=== PATIENT | male | born 1970 | race Caucasian/White ===

== ENCOUNTER 2022-10-17 13:45 | Outpatient (CLI) | payer OTHER, SELFPAY ==
--- NOTE | ~2022-10-17 | US_ITS ---
EXAMINATION: US venous doppler [facility] DATE: 10/17/2022 14:20 INDICATION: Left lower limb pain, swelling and occasional erythema TECHNIQUE: Grayscale ultrasound images without and with compression and Doppler ultrasound images of the left lower extremity veins were obtained. COMPARISON: None. FINDINGS: The visualized portions of left common femoral vein, profunda (deep) femoral vein, femoral vein, popl iteal vein, peroneal veins, posterior tibial veins, gastrocnemius vein, soleal vein and greater saphe nous vein outflow are patent. IMPRESSION: 1. No deep venous thrombosis in the left lower limb. Reviewed, dictated and finalized at location A.
== END 2022-10-17 13:46 ==
PROVIDERS: PCP Nurse Practitioner Family; Visit Provider Nurse Practitioner Family
DX: R22.42 Localized swelling, mass and lump, left lower limb (principal)
CPT/HCPCS: 93971

== ENCOUNTER 2024-07-27 14:35 | Outpatient (CLI) | payer OTHER, SELFPAY ==
--- NOTE | ~2024-07-27 | XR_ITS ---
AP view of the pelvis and AP and lateral views of the right hip Clinical history: Pain Findings: No acute fracture or dislocation is seen. Osseous alignment is anatomic. Bilateral hip and SI joint spaces are preserved. Soft tissues are unremarkable. Impression: No significant abnormality is seen. Reviewed, dictated and finalized at [facility]. OR REVENUE ACCOUNTANT Impression: No significant abnormality is seen.
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
--- OUTSIDE RECORDS SUMMARY | 2024-07-27 15:25 | XMS_ITS | Encounter Summary ---
Author Organization [facility] Address [address] [place] [address] Care Team Providers Care Mail List Processor Name Role Phone Margi Minor COATER OPERATOR INSULATION BOARD-WOOD TANK BUILDER Primary Care Provider Encounter Details Date Type Department Care Team (Late st Contact Info) Description 02/15/2019 Lab Requisition [facility] [address] [place] [address] Haley Simeon MD [address] [place] [address] Illness Social History Tobacco Use Types Packs/Day Years Used Date Smoking Tobacco: Never Assessed Sex and Gender Information Value Date Recorded Sex Assigned at Not on file Gender Identity Not on file Sexual Orientation Not on file documented as of this encounter Plan of Treatment Not on file documented as of this encounter Procedures Procedure Name Priority Date/Time Associated Diagnosis Comments PATHOLOGY TISSUE Routine 02/11/2019 3:50 PM CDT Illness documented in this encounter Results * PATHOLOGY TISSUE (02/11/2019 3:50 PM CDT) Case Report Surgical Pathology Report Case: [id number] Authorizing Provider: Haley Simeon MD Collected: 02/11/2019 03:50 PM Ordering Location: [facility] Received: 02/15/2019 03:50 PM Pathologist: Anyi Sandoval MD Specimen: Slide Consultation, OSC: [id number] 02/17/2019 12:27 PM CDT [facility] Final Diagnosis Prostate, LLB, needle core biopsy (, A; 02/11/2019): - Benign prostatic tissue Prostate, LLM, needle core biopsy (, B; 02/11/2019): - Benign prostatic tissue Prostate, LLA, needle core biopsy (, C; 02/11/2019): - Benign prostatic tissue Prostate, LB, needle core biopsy (, D; 02/11/2019): - Benign prostatic tissue Prostate, LM, needle core biopsy (, E; 02/11/2019): - Benign prostatic tissue Prostate, LA, needle core biopsy (, F; 02/11/2019): - Benign prostatic tissue Prostate, RB, needle core biopsy (, G; 02/11/2019): - Benign prostatic tissue Prostate, RM, needle core biopsy (, H; 02/11/2019): - Benign prostatic tissue Prostate, RA, needle core biopsy (, I; 02/11/2019): - Benign prostatic tissue Prostate, RLB, needle core biopsy (, J; 02/11/2019): - Benign prostatic tissue Prostate, RLM, needle core biopsy (, K; 02/11/2019): - Benign prostatic tissue Prostate, RLA, needle core biopsy (, L; 02/11/2019): - Benign prostatic tissue 02/17/2019 12:27 PM [facility] Microscopic Description and Comment All twelve biopsies contain benign prostatic tissue. No tumor is seen. 02/17/2019 12:27 PM [facility] Clinical History 48-year-old man, PSA 5.7, prostate volume 37.8, T1c 02/17/2019 12:27 PM [facility] Materials Received Received are 12 H and E stained slides (A1 - L1) from [facility], [address] [place] [address], [address], [place] [address], labeled with the patient s name Derick Garrison and , along with the corresponding pathology gross description also labeled with the patient's full name Derick Garrison . All material will be returned. 02/17/2019 12:27 PM CDT [facility] Disclaimer The performance characteristics of all immunohistochemical and indirect immunofluorescence stains (if any) cited in this report were determined by the Histopathology Laboratory of [facility]. Some of these tests were developed by our own laboratory and have not been cleared or approved by the US Food and Drug Administration. The FDA does not require this test to go through premarket FDA review. These tests are used for clinical purposes. They should not be regarded as investigational or for research. This laboratory is certified under the Clinical Laboratory Improvement Amendments (CLIA) as qualified to perform high complexity clinical laboratory testing. This case has been personally reviewed and interpreted by the attending (teaching) pathologist. 02/17/2019 12:27 PM CDT [facility] Embedded Images 02/17/2019 12:27 PM CDT [facility] Pathology/Cytolo gy SURGICAL PATHOLOGY CONSULTATION AND REPORT ON REFERRED SLIDES PREPARED ELSEWHERE / Unknown 02/11/2019 3:50 PM CDT 02/15/2019 3:50 PM CDT Haley Simeon MD LAB - PATHOLOGY/CYTO LOGY ORDERABLES Performing Organization Address City/State/[facility] [place] Phone Number [facility] [address] [phone] documented in this encounter Visit Diagnoses Diagnosis Illness Other unknown and unspecified cause of morbidity or mortality documented in this encounter Care Teams Mail List Processor Relationship Specialty Start Date End Date Margi Minor, COATER OPERATOR INSULATION BOARD-WOOD TANK BUILDER [address] [place] [address] PCP - General Nurse Practitioner Family 03/05/22 documented as of this encounter
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
--- OUTSIDE RECORDS SUMMARY | 2024-07-27 15:25 | XMS_ITS | Data Portability ---
Author Organization [place] [facility], Main Office Address [address] [place] [address] Care Team Providers Care Gas Line Installer Name Role Phone NOEL BYRNES Primary Care Provider ARMANDO [employer]BB [employer] Safety Program Coordinator Assessment Encounter Date Assessment Date Assessment LastModified by Organization Details LastModified Time 12/28/2023 12/28/2023 The patient gave verbal consent using TeleHealth services and the consent is documented in the medical record prior to using the service. The patient has been informed of what a TeleMedicine visit is. Patient is located at home. Provider is located at office. Names and roles of persons in addition to the patient and provider participating in telemedicine services include none. The patient had a 7 minute TeleMedicine consultation via [employer] to discuss the following: Not available 12/28/2023 18:13:16 01/26/2024 01/26/2024 Sample of Wegovy (1) given to pt. [email or web address] Not available 01/26/2024 15:08:00 04/01/2024 04/01/2024 Flu shot: declines COVID vaccines: 2020, 2020 Tdap: 2021 Shingles: recommended Coloscopy: cologuard negative 2023 PSA: 5.36 (10/26/2023) cleared by urology Goes to eye dr annually Does not have dentist visit regularly [email or web address] Not available 04/01/2024 15:17:18 Plan of Treatment Reminders Order Date Submit Date Provider Last Modified By Organization Details Last Modified Time Details Appointments Sick/Acut e 2024 02:00P YOBANY Costa Not available Not available Not available Lab PSA, serum or plasma 2023 024 [email or web address] [facility] (Lab), [address], [place], [address], 11/23/2023 13:18:01 HbA1c (hemoglob in A1c), blood 2023 024 [facility], [address], [address], [place], [address], 04/08/2024 08:02:48 lipid panel, serum 2023 024 [facility], [address], [address], [place], [address], 04/08/2024 08:02:48 TSH, ultra-sen sitive, serum 2023 024 [facility], [address], [address], [place], [address], 04/08/2024 08:02:49 CBC w/ auto diff 2023 024 [facility], [address], [address], [place], [address], 04/08/2024 08:02:48 CMP, serum or plasma 2023 024 [facility], [address], [address], [place], [address], 04/08/2024 08:02:48 Referral None recorded. Procedures None recorded. Surgeries None recorded. Imaging XR, hip + pelvis, unilatera l, 2 or 3 view - Please XR right hip [address], [address], [address], [address], 07/27/2024 15:27:32 Medication Orders levofloxa ginette 750 mg tablet 2023 024 [email or web address] [facility]/Pharmacy #[id number], [address], [place], [address], 01/26/2024 14:45:57 tamsulosi n 0.4 mg capsule [address]/Pharmacy #[id number], [address], [place], [address], 04/01/2024 14:59:28 phentermi ne 30 mg capsule 2023 024 [facility]/Pharmacy #[id number], [address], [place], [address], 04/01/2024 15:09:20 losartan 100 mg-hydroc hlorothia zide 12.5 mg tablet 2023 024 [id number], [address], [place], [address], 01/26/2024 14:55:20 metoprolo l tartrate 100 mg tablet 2023 024 [facility]/Pharmacy #[id number], [address], [place], [address], 01/26/2024 14:55:21 omeprazol e 20 mg capsule,d elayed release 2023 024 [id number], [address] [place], [address], 01/26/2024 14:55:21 Wegovy 0.25 mg/0.5 mL subcutane ous pen injector [address]/Pharmacy #[id number], [address], [place], [address], 07/27/2024 15:03:56 ketorolac 60 mg/2 mL intramusc ular solution 2024 025 [facility] Not available 07/27/2024 15:26:17 hydrocodo ne 10 mg-acetam inophen 325 mg tablet 2024 025 [facility]/Pharmacy #[id number], [address], [place], [address], 07/27/2024 15:17:25 cyclobenz aprine 10 mg tablet 2024 025 [facility]/Pharmacy #[id number], [address], [place], [address], 07/27/2024 15:17:21 Patient TargetsNo targets recorded. Patient Instructions Encounter Date Encounter Id Patient Instructions Last Modified By Organization Details Last Modified Time 11/20/2023 [id number] plan 1. Start on tamsulosin 2. Send a prescription for Levaquin 500 mg he will take the night before his prostate biopsy in the morning of his prostate biopsy 3. Schedule patient for flexible cystoscopy and transrectal ultrasound with needle biopsies of the prostate, local anesthesia, no hep-lock no IV, surgical time 15 minutes Not available 11/20/2023 18:11:15 12/28/2023 [id number] plan 1. Patient's biopsies were all negative for cancer no follow up is necessary I will just see him back as needed Not available 12/28/2023 18:13:31 01/26/2024 [id number] starting a weigh t loss plan: care instructions [email or web address] Not available 01/26/2024 15:06:04 Reason for Referral None Reported. Results Created Date Observation Date Name Description Value Unit Range Abnormal Flag Note LastModifiedBy Organization Detail LastModifiedTime 11/20/1911/20/2023 urina lysis , dipst ick Appearance Cloudy Not Available [facility] [address], [address], [address], 11/20/2023 15:46:49 11/20/1911/20/2023 urina lysis , dipst ick Color Yellow Not Available [facility] [address], [address], [address], 11/20/2023 15:46:49 11/20/19 24 11/20/2023 urina lysis , dipst ick Glucose (reference range: negative mg/dl) Negati ve Not Available [address], [address], 11/20/2023 15:46:49 11/20/19 24 11/20/2023 urina lysis , dipst ick Bilirubin (reference range: negative mg/dl) Negati ve Not Available [address], [address], 11/20/2023 15:46:49 11/20/19 24 11/20/2023 urina lysis , dipst ick Ketone (reference range: negative mg/dl) Negati ve Not Available [address], [address], 11/20/2023 15:46:49 11/20/19 24 11/20/2023 urina lysis , dipst ick Specific [place] (reference range: 1.005-1.030) 1.010 Not Available [address], [address], 11/20/2023 15:46:49 11/20/19 24 11/20/2023 urina lysis , dipst ick Blood (reference range: negative Joni/ l) Negati ve Not Available [address], [address], 11/20/2023 15:46:49 11/20/19 24 11/20/2023 urina lysis , dipst ick pH (reference range: 5-7) 6.5 Not Available [address], [address] , [place], [address], 11/20/2023 15:46:49 11/20/19 24 11/20/2023 urina lysis , dipst ick Protein (reference range: negative mg/dl) Negati ve Not Available [address], [address], 11/20/2023 15:46:49 11/20/19 24 11/20/2023 urina lysis , dipst ick Urobilinogen (reference range: 0.2-1 mg/dl) 0.2 Not Available [address] [address], [place], [address], 11/20/2023 15:46:49 11/20/19 24 11/20/2023 urina lysis , dipst ick Nitrite (reference rage: negative mg/dl) positi ve Not Available [address] [address], [place], [address], 11/20/2023 15:46:49 11/20/19 24 11/20/2023 urina lysis , dipst ick Leukocytes (reference range: negative missy/ l) Negati ve Not Available [address], [address], 11/20/2023 15:46:49 12/17/19 24 12/17/2023 COLOG UARD cologuard result reportable NEGATI VE negati ve normal NEGAT LETICIA TEST RESUL T. A negat leticia Colog uard resul t indic ates a low likel ihood that a color ectal cance r (CRC) or advan jo adeno ma (roxanna omato us polyp s with more advan jo pre-m align ant featu res) is prese nt. The nemours foundation e that a perso n with a negat leticia Colog uard test has a color ectal cance r is less than 1 in 1500 (nega tive predi ctive value >99.9 %) or has an advan jo adeno ma is less than 5.3% (nega tive predi ctive value 94.7% ). These data are based on a prosp ectiv e cross -sect ional study of 10,00 0 ind[facility]ual [facility] risk for color ectal cance r who were scree roseline with both Colog uard and colon oscop y. (Bude michelle T. et al, N Engl J Med 2014; 370(1 4):12 86-12 97) The katharine l value (refe rence range ) for this assay is negat leticia. COLOG UARD RE-SC REENI NG RECOM MENDA TION: Perio dic color ectal cance r scree [place] is an impor tant part of preve ntive healt hcare for asymp tomat ic indiv idual s at [facility] risk for color ectal cance r. Follo wing a negat leticia Colog uard resul t, the Ameri can Cance r Socie ty and U.S. Multi -Soci ety Task Force scree [place] guide lines recom mend a Colog uard re-sc reemaral ng inter angelito of 3 years . Refer ences : Ameri can Cance r Socie ty Guide line for Color ectal Cance r Scree lakesha: https ://malorie w.can cer.o rg/ca ncer/ colon -rect al-ca ncer/ detec tion- diagn osis- stagi ng/ac s-rec ommen datio ns.ht ml.; Marc GARCIA, Malik dooley CR, Brittany HAN, Color ectal Cance r Scree [place]: Recom menda tions for Physi cians and Patie nts from the U.S. Multi -Soci ety Task Force on Color ectal Cance r Scree lakesha , Isra Latham oente rolog y 2017; 112:1 016-1 030. TEST DESCR IPTIO N: [place] site algor ithmi c geoffrey sis of stool DNA-b emilie garcia with hemog lobin immun oassa y. Quant itati ve value s of indiv idual bioma rkers are not repor table and are not assoc iated with indiv idual bioma rker resul t refer ence range s. Colog uard is inten ded for color ectal cance r scree [place] of adult s of eithe r sex, 45 years or older , who are at [facility] for color ectal cance r (CRC) . Colog uard has been appro deepak for use by the U.S. FDA. The perfo rmanc e of Colog uard was estab lishe d in a cross secti onal study of [facility] adult s aged 50-84 . Colog uard perfo rmanc e in patie nts ages 45 to 49 years was estim ated by sub-g roup geoffrey sis of near- age group s. Colon oscop ies perfo rmed for a posit leticia resul t may find as the most clini alex signi jose t shahida n: color ectal cance r [4.0% ], advan jo adeno ma (incl uding sessi le maria fernanda louisa polyp s great er than or equal to 1cm diame ter) [20%] or non- advan jo adeno ma [31%] ; or no color ectal neopl kolton [45%] . These estim ates are deriv ed from a prosp ectiv e cross -sect ional scree [place]ha study of 10,00 0 indiv idual s at [facility] risk for color ectal cance r who were scree roseline with both Colog uard and colon oscop y. (Janki Ash al, N Engl J Med 2014; 370(1 4):12 86-12 97.) Colog uard may produ ce a false negat leticia or false posit leticia resul t (no color ectal cance r or preca ncero us polyp prese nt at colon oscop y follo w up). A negat leticia Colog uard test resul t does not guara ntee the absen ce of CRC or advan jo adeno ma (pre- cance r). The curre nt Colog uard scree [place] inter angelito is every 3 years . (Adriel Mahmood r Socie ty and U.S. Multi -Soci ety Task Force ). Colog uard perfo rmanc e data in a 10,00 0 patie nt pivot al study using colon oscop y as the refer ence metho d can be acces sed at the follo wing locat ion: www.e xactl abs.c om/re sults . Addit ional descr iptio n of the Colog uard test proce ss, warni ngs and preca ution s can be found at www.c candiu bigg.c om. Not Available [employer] (Cologuard Orders Only) [address], [place], [address], 12/22/2023 10:33:51 Result Notes None recorded. Problems Name Problem SNOMED Code Status Onset Date Resolution Date Notes Provider Name and Address Organization Details Recorded Time Cellul[employer] s 183910127 Completed 10/26/[address], [address], [place], [address] , [employer] 4 15:23:31 Thyroid stimulati ng hormone level below reference range 924835320 Completed 201810/26/2023 YOBANY Whalen [address], [address], [place], [address] , [employer] 4 15:23:04 Family history of diabetes mellitus 640373267 Active 2017 Not Available [facility] 3 08:46:17 Prostate specific antigen above reference range 511017277 Active 2018 Not Available [facility] 3 08:46:17 Obese 836172274 Active 2017 Not Available [facility] 3 08:46:17 Furuncle 992304461 Completed 201710/26/[address], [address], [place], [address] , [employer] 4 15:23:49 Essential hypertens ion 00162472 Active 2021 Not Available [facility] 3 08:46:18 Alcohol dependenc e 27249111 Active 2017 Not Available [facility] 3 08:46:18 Acid reflux 584983600 Active 2017 Not Available [facility] 3 08:46:18 Liver enzymes level above reference range 846825148 Completed 201810/26/2023 YOBANY Whalen [address], [address], [place], [address] , [employer] [facility] 4 15:23:18 Swelling of lower leg 425095848 Active 2022 Margi Minor NP [address], [address], [place], [address] , [employer] [facility] 3 16:00:40 Thyroid stimulati ng hormone level above reference range 199478839 Completed 202210/26/2023 YOBANY Whalen [address], [address], [place], [address] , [employer] [facility] 4 15:22:58 Hyperglyc emia 67887184 Active 2022 Margi Minor NP [address], [address], [place], [address] , [employer] [facility] [facility] 3 17:15:52 Epidermoi d cyst of skin 734133222 Active 2023 YOBANY Whalen [address], [address], [place], [address] , [email or web address] [facility] [facility] 4 15:24:00 Obesity 984657049 Active 2023 YOBANY Whalen [address], [address], [place], [address] , [employer] [facility] 4 15:33:37 Benign prostatic hyperplas ia with outflow obstructi on 182357415 Active 2023 Cindy Crawford CMA null, [facility] [employer] [facility] 4 15:37:25 Gastroeso phageal reflux disease 202979933 Active 2023 YOBANY Whalen [address], [place], [address] , [employer] [facility] 4 12:18:35 Hypertens leticia disorder 57272941 Active 2023 Clinton Soto MD [address], [address], [place], [address] , [employer] 4 14:50:23 Ex-cigare tte smoker 142269198 Active 2023 Clinton Soto MD [address], [address], [place], [address] , [email or web address] [facility] 4 14:55:40 Pain in right hip joint 64163190322 9102 Active [address], [address], [place], [address] , [employer] [facility] 5 15:12:04 Problem Notes None recorded. Procedures Surgical History Date Name Laterality Status Provider Name and Address Organization Details Recorded Time 2 procedure on wound completed Not Available [facility] 08/20/2022 08:43:05 Imaging Results None recorded. Procedure Notes None recorded. Medical Equipment None Reported. Allergies No known drug allergies Medications Name Sig Start Date Stop Date Status Note LastModified by Organization Details LastModified Time losartan 50 mg tablet TAKE 1 TABLET BY MOUTH EVERY DAY 01/25 completed Not Available Not Available Not Available cyclobenzap rine 10 mg tablet TAKE 1 Tablet BY MOUTH THREE TIMES DAILY 2024 active Not Available Not Available Not Avai lable silver sulfadiazin e 1 % topical cream APPLY TO AFFECTED AREA TOPICALLY EVERY DAY 05/21 completed Not Available Not Available Not Available lisinopril 20 mg-hydrochl orothiazide 12.5 mg tablet TAKE 1 TABLET BY MOUTH EVERY DAY (LAST FILL UNTIL SEEN 10/21/21) 03/26 completed Not Available Not Available Not Available metoprolol tartrate 100 mg tablet TAKE 1 TABLET BY MOUTH TWICE A DAY DIRECTED active Not Available Not Available No t Available hydrocodone 5 mg-acetamin ophen 325 mg tablet TAKE 2 TABLETS BY MOUTH EVERY 4 HOURS NEEDED FOR PAIN 10/09 completed Not Available Not Available Not Available phentermine 15 mg capsule TAKE 1 CAPSULE BY MOUTH EVERY DAY DIRECTED FOR 30 DAYS 01/25 completed Not Available Not Available Not Available bacitracin 500 unit/gram topical ointment APPLY TOPICALLY TO THE AFFECTED AREA(S) THREE TIMES DAILY DIRECTED. 05/21 completed Not Available Not Available Not Available cimetidine 300 mg tablet TAKE 1 TABLET BY MOUTH THREE TIMES A DAY NEEDED 12/20 completed Not Available Not Available Not Available sulfamethox azole 800 mg-trimetho prim 160 mg tablet TAKE 1 TABLET BY MOUTH TWICE A DAY FOR 2 WEEKS 10/09 completed Not Available Not Available Not Available hydrocodone 10 mg-acetamin ophen 325 mg tablet Take 1 tablet every 12 hours by oral route as needed for 7 days. 2024 active Not Available Not Available Not Avai lable phentermine 30 mg capsule TAKE 1 CAPSULE BY MOUTH EVERY DAY IN THE MORNING 04/01 completed Not Available Not Available Not Available pantoprazol e 20 mg tablet,saray yed release TAKE 1 Tablet BY MOUTH DAILY BEFORE BREAKFAST 05/21 completed Not Available Not Available Not Available famotidine 20 mg tablet 1 tab po daily 12/26 completed Not Available Not Available Not Available tamsulosin 0.4 mg capsule TAKE 1 CAPSULE BY MOUTH EVERY DAY active Not Available Not Available No t Available cephalexin 500 mg capsule TAKE 1 TABLET BY MOUTH 3 TIMES A DAY 12/20 completed Not Available Not Available Not Available ranitidine 150 mg tablet TAKE 1 TABLET BY MOUTH TWICE A DAY 10/20 completed Not Available Not Available Not Available polymyxin B sulfate 10,000 unit-trimet hoprim 1 mg/mL eye drops INSTILL 1 DROP INTO AFFECTED EYE(S) (bilatera lly) BY OPHTHALMI C ROUTE EVERY 6 HOURS for 7-10 days active Not Available Not Available No t Available metoprolol tartrate 50 mg tablet TAKE 1 TABLET BY MOUTH TWICE A DAY 04/01 completed Not Available Not Available Not Available gabapentin 300 mg capsule TAKE 1 Capsule BY MOUTH THREE TIMES DAILY 05/21 completed Not Available Not Available Not Available omeprazole 20 mg capsule,del ayed release TAKE 1 CAPSULE BY MOUTH EVERY DAY active Not Available Not Available No t Available Baby Aspirin 81 mg chewable tablet Chew 1 tablet every other day by oral route. active Not Available Not Available No t Available levofloxaci n 750 mg tablet TAKE 1 TABLET BY MOUTH THE NIGHT BEFORE PROCEDURE AND 1 TABLET THE MORNING OF PROCEDURE . 01/25 completed Not Available Not Available Not Available losartan 50 mg-hydrochl orothiazide 12.5 mg tablet TAKE 1 TABLET BY MOUTH EVERY DAY DIRECTED 04/01 completed Not Available Not Available Not Available ketorolac 60 mg/2 mL intramuscul ar solution Inject 1 mL every day by intramusc ular route as directed for 1 day. 2024 active Not Available Not Available Not Avai lable cefdinir 300 mg capsule TAKE 1 CAPSULE BY MOUTH 1 HOUR PRIOR TO PROCEDURE AND 1 CAPSULE 12 HOURS FOLLOWING PROCEDURE 06/23 completed Not Available Not Available Not Available amoxicillin 500 mg-potassiu m clavulanate 125 mg tablet TAKE 1 TABLET BY MOUTH EVERY 12 HOURS FOR 7 DAYS 06/23 completed Not Available Not Available Not Available losartan 100 mg-hydrochl orothiazide 12.5 mg tablet TAKE 1 TABLET BY MOUTH EVERY DAY IN THE MORNING active Not Available Not Available No t Available Symbicort 160 mcg-4.5 mcg/actuati on HFA aerosol inhaler Inhale 2 puffs twice a day by inhalatio n route. 03/26 completed Not Available Not Available Not Available oxycodone 10 mg tablet TAKE ONE TABLET BY MOUTH EVERY SIX HOURS NEEDED FOR PAIN (SCALE 7-10) 05/21 completed Not Available Not Available Not Available naloxone 4 mg/actuatio n nasal spray PLEASE SEE ATTACHED FOR DETAILED DIRECTION S 10/09 completed Not Available Not Available Not Available Fluarix Quad 5903-5050 (PF) 60 mcg (15 mcg x 4)/0.5 mL IM syringe TO BE ADMINISTE RED BY PHARMACIS T FOR IMMUNIZAT ION 07/04 completed Not Available Not Available Not Available Wegovy 0.25 mg/0.5 mL subcutaneou s pen injector Inject 0.25 mg every week by subcutane ous route as directed for 28 days. 07/27 completed Not Available Not Available Not Available Wegovy 0.5 mg/0.5 mL subcutaneou s pen injector Inject 0.5 mg every week by subcutane ous route. 04/21 completed Not Available Not Available Not Available Vitals Date Recorded Body height Heart rate Body temperature Oxygen saturation Oxygen saturation in Arterial blood by Pulse oximetry Body mass index (BMI) Body weight Systolic blood pressure Diastolic blood pressure Provider Name and Address Organization Details Last Updated DateTime 172.72 cm 90 /min 97.1 [degF] 98 % 98 % 46.2 kg/m2 467201. 08 g 151 mm[Hg] 91 mm[Hg] Cindy Crawford CMA [employer] 15:05:17 Date Recorded Body height Body mass index (BMI) Body weight Provider Name and Address Organization Details Last Updated DateTime 12/28/2023 172.72 cm 42.6 kg/m2 832634.86 g Cindy Crawford CMA [employer] 12/28/2023 14:07:48 Date Recorded Body height Body mass index (BMI) Body weight Body temperature Heart rate Oxygen saturation Oxygen saturation in Arterial blood by Pulse oximetry Systolic blood pressure Diastolic blood pressure Provider Name and Address Organization Details Last Updated DateTime 172.72 cm 43.8 kg/m2 852628. 96 g 98 [degF] 84 /min 99 % 99 % 156 mm[Hg] 88 mm[Hg] Fawad Gallego [employer] 14:43:31 Date Recorded Respiratory rate Provider Name a ak Address Organization Details Last Updated DateTime 01/26/2024 20 /min Sarita Greene [address] [place] [address], [address], [employer] 01/26/2024 15:06:45 Date Recorded Body height Body mass index (BMI) Body weight Body temperature Heart rate Respiratory rate Pain severity - 0-10 verbal numeric rating [Score] - Reported Oxygen saturation Oxygen saturation in Arterial blood by Pulse oximetry Systolic blood pressure Diastolic blood pressure Provider Name and Address Organization Details Last Updated DateTime 4 172.72 cm 42.7 kg/m2 554142. 16 g 97.3 [degF] 63 /min 20 /min 0 98 % 98 % 152 mm[Hg] 90 mm[Hg] Margi Mccauley RN [facility] [employer] [facility] 4 15:01:34 Date Recorded Body height Body mass index (BMI) Body weight Body temperature Heart rate Respiratory rate Oxygen saturation Oxygen saturation in Arterial blood by Pulse oximetry Pain severity - 0-10 verbal numeric rating [Score] - Reported Systolic blood pressure Diastolic blood pressure Provider Name and Address Organization Details Last Updated DateTime 5 172.72 cm 44.7 kg/m2 624238. 91 g 98.1 [degF] 51 /min 20 /min 98 % 98 % 8 148 mm[Hg] 90 mm[Hg] Margi Mccauley RN [facility] [employer] 5 15:06:04 Social History Question Answer Notes LastModified by Organization Details LastModified Time Tobacco Smoking Status Former Smoker Clinton Soto MD [address] [place] [address], [address], [facility] [employer] 01/26/2024 15:06:33 What Is Your Level Of Alcohol Consumption? Heavy [id number] Information not available 08/20/2022 Is Blood Transfusion Acceptable In An Emergency? Yes Information not available 10/09/2022 What Is Your Level Of Caffeine Consumption? Heavy Coffee, Soda Information not available 10/09/2022 How Much Tobacco Do You Chew? None [id number] Information not available 08/20/2022 What Is Your Code Status? Full Code Information not available 10/09/2022 In The 14 Days Before Symptom Onset, Have You Had Close Contact With A Laboratory-confi rmed COVID-19 While That Case Was Ill? No [id number] Information not available 08/20/2022 In The 14 Days Before Symptom Onset, Have You Had Close Contact With A Person Who Is Under Investigation For COVID-19 While That Person Was Ill? No [id number] Information not available 08/20/2022 Are You Currently Employed? Yes Information not available 10/09/2022 What Type Of Diet Are You Following? REGULAR [id number] Information not available 08/20/2022 Which Illicit Or Recreational Drugs Have You Used? All Kinds Information not available 10/09/2022 Do You Or Have You Ever Used E-cigarettes Or Vape? Never Used Electronic Cigarettes [id number] Information not available 08/20/2022 What Is The Highest Grade Or Level Of School You Have Completed Or The Highest Degree You Have Received? 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 No Information not available 10/09/2022 Are There Any Guns Present In Your Home? No Information not available 10/09/2022 Do You Use Insect Repellent Routinely? Yes Information not available 10/09/2022 Where Do You Live? [place]House Information not available 10/09/2022 Do You Have A Medical Power Of Customer Account Executive? No Information not available 10/09/2022 Do You Have Any Pets? No Information not available 10/09/2022 What Is Your Relationship Status? Single Information not available 10/09/2022 Do You Use Your Seat Belt Or Car Seat Routinely? Yes Information not available 10/09/2022 Do You Have Smoke And Carbon Monoxide Detectors In Your Home? Yes Information not available 10/09/2022 Do You Or Have You Ever Used Smokeless Tobacco? Never Used Smokeless Tobacco [id number] Information not available 08/20/2022 Do You Participate In Social Media? Yes Information not available 10/09/2022 Do You Feel Stressed (tense, Restless, Nervous, Or Anxious, Or Unable To Sleep At Night)? [id number] Information not available 10/09/2022 Do You Use Any Illicit Or Recreational Drugs? Yes Information not available 10/09/2022 Do You Use Sunscreen Routinely? Yes Information not available 10/09/2022 Have You Recently Traveled Abroad? No Information not available 10/09/2022 Have You Used IV Drugs? No Information not available 10/09/2022 Do You Or Have You Ever Used Any Other Forms

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
--- OUTSIDE RECORDS SUMMARY | 2024-07-27 15:25 | XMS_ITS | Patient Health Summary ---
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 fracture (03/05/2022 5:05 PM CDT) Anatomical Region Laterality Modality Spine Computed Tomogra phy 03/06/2022 7:18 AM CDT Impressions 03/06/2022 7:31 AM CDT IMPRESSION: Head: 1.No acute intracranial abnormality. Cervical, thoracic and lumbar spine: 1.No fracture of the cervical or thoracic spine. 2.Acute mildly displaced fractures of left L1-L3 transverse processes. Acute fracture of left L3. 3.Please refer to the separately dictated report of CT scan of the chest, abdomen and pelvis for intrathoracic and intra-abdominal findings. > Interpreting Provider: Juli Valadez MD on 03/06/2022 7:31 AM Narrative 03/06/2022 7:31 AM CDT PROCEDURE: CT HEAD WO CONTRAST, CT LUMBAR SPINE WO CONTRAST, CT THORACIC SPINE WO CONTRAST, CT CERVICAL SPINE WO CONTRAST, DATE/TIME OF EXAM: 03/05/2022 5:07 PM, LOCATION [facility] INDICATION: Trauma COMPARISON: None. EXAMINATIONS: CT of the head without intravenous contrast CT of the cervical spine without intravenous contrast CT of the thoracic spine CT of the lumbar spine TECHNIQUE: CT of the head and cervical spine was performed without intravenous contrast according to standard protocol. CT images of the thoracic spine and lumbar spine were reformatted from the concurrently obtained CT scan of the chest, abdomen and pelvis with intravenous contrast. CT dose reduction technique was used, including Automated Exposure Control. FINDINGS: Head: There is no acute intracranial hemorrhage. There is no hydrocephalus, midline shift or extra-axial fluid collection. The brain parenchyma is normal in appearance. The paranasal sinuses and tympanomastoid cavities are aerated.The orbits are unremarkable. There is no calvarial fracture. Cavities and periapical lucencies are seen associated with the right maxillary molars. Cervical spine: There is no fracture or traumatic subluxation. The prevertebral soft tissues are within normal limits. There is retropharyngeal course of bilateral carotid arteries. Straightening of cervical spine is seen with slight retrolisthesis of C4 relative to C5, presumably from degenerative changes. Multilevel degenerative changes are seen. There is moderate spinal canal stenosis at C5-6. Severe stenosis of right C5-6 neural foramen is seen. There are no aggressive appearing lytic or sclerotic bone lesions. Thoracic spine: There is no fracture or traumatic subluxation of the thoracic spine. There is an acute fracture of posterior medial head of the left 12th rib. Multilevel degenerative changes are seen. There is no spinal canal or foraminal stenosis. There are no aggressive appearing lytic or sclerotic bone lesions. Lumbar spine: There are acute mildly displaced fractures of left L1-L3 transverse processes. Edema/hemorrhage is seen in the adjacent paraspinal soft tissues and muscles. Old compression deformity of T1 is seen with Schmorl's node in the right aspect of the superior endplate. The included sacrum is intact. The lumbar lordosis is maintained with levocurvature. There is no subluxation. Mild degenerative changes are seen. There is mild spinal canal stenosis at L3-4 and L4-5. Mild to moderate bilateral foraminal stenosis is seen from L3-4 to L5-S1, most pronounced on the left. There are no aggressive appearing lytic or sclerotic bone lesions. Procedure Note Juli Valadez MD - 03/06/2022 PROCEDURE: CT HEAD WO CONTRAST, CT LUMBAR SPINE WO CONTRAST, CTTHORACIC SPINE WO CONTRAST, CT CERVICAL SPINE WO CONTRAST, DATE/TIME OF EXAM: 03/05/2022 5:07 PM, LOCATION [facility] INDICATION: Trauma COMPARISON: None. EXAMINATIONS: CT of the head without intravenous contrast CT of the cervical spine without intravenous contrast CT of the thoracic spine CT of the lumbar spine TECHNIQUE: CT of the head and cervical spine was performed without intravenous contrast according to standard protocol. CT images of the thoracic spine and lumbar spine were reformatted from the concurrently obtained CT scan of the chest, abdomen and pelvis with intravenous contrast. CT dose reduction technique was used, including Automated Exposure Control. FINDINGS: Head: There is no acute intracranial hemorrhage. There is no hydrocephalus, midline shift or extra-axial fluid collection. The brain parenchyma is normal in appearance. The paranasal sinuses and tympanomastoid cavities are aerated.The orbits are unremarkable. There is no calvarial fracture. Cavities andperiapical lucencies are seen associated with the right maxillary molars. Cervical spine: There is no fracture or traumatic subluxation. The prevertebral soft tissues are within normal limits. There is retropharyngeal course of bilateral carotid arteries. Straightening of cervical spine is seen with slight retrolisthesis of C4 relative to C5, presumably from degenerative changes. Multilevel degenerative changes are seen. There is moderate spinal canal stenosisat C5-6. Severe stenosis of right C5-6 neural foramen is seen. There are no aggressive appearing lytic or sclerotic bone lesions. Thoracic spine: There is no fracture or traumatic subluxation of the thoracic spine.There is an acute fracture of posterior medial head of the left 12th rib. Multilevel degenerative changes are seen. There is no spinal canal or foraminal stenosis. There are no aggressive appearing lytic or sclerotic bone lesions. Lumbar spine: There are acute mildly displaced fractures of left L1-L3 transverse processes. Edema/hemorrhage is seen in the adjacent paraspinal softtissues and muscles. Old compression deformity of T1 is seen with Schmorl's node in the right aspect of the superior endplate. The included sacrum is intact. The lumbar lordosis is maintained with levocurvature. There is no subluxation. Mild degenerative changes are seen. There is mild spinalcanal stenosis at L3-4 and L4-5. Mild to moderate bilateral foraminal stenosisis seen from L3-4 to L5-S1, most pronounced on the left. There are no aggressive appearing lytic or sclerotic bone lesions. IMPRESSION: Head: 1.No acute intracranial abnormality. Cervical, thoracic and lumbar spine: 1.No fracture of the cervical or thoracic spine. 2.Acute mildly displaced fractures of left L1-L3 transverse processes. Acute fracture of left L3. 3.Please refer to the separately dictated report of CT scan of thechest, abdomen and pelvis for intrathoracic and intra-abdominal findings. > Interpreting Provider: Juli Valadez MD on 03/06/2022 7:31 AM Nahum Rodrigues MD CT ORDERABLES * CT CERVICAL SPINE WO CONTRAST - C-Spine Trauma, Spine fracture (03/05/2022 5:05 PM CDT) Anatomical Region Laterality Modality Spine Computed Tomogra phy 03/06/2022 7:18 AM CDT Impressions 03/06/2022 7:31 AM CDT IMPRESSION: Head: 1.No acute intracranial abnormality. Cervical, thoracic and lumbar spine: 1.No fracture of the cervical or thoracic spine. 2.Acute mildly displaced fractures of left L1-L3 transverse processes. Acute fracture of left L3. 3.Please refer to the separately dictated report of CT scan of the chest, abdomen and pelvis for intrathoracic and intra-abdominal findings. > Interpreting Provider: Juli Valadez MD on 03/06/2022 7:31 AM Narrative 03/06/2022 7:31 AM CDT PROCEDURE: CT HEAD WO CONTRAST, CT LUMBAR SPINE WO CONTRAST, CT THORACIC SPINE WO CONTRAST, CT CERVICAL SPINE WO CONTRAST, DATE/TIME OF EXAM: 03/05/2022 5:07 PM, LOCATION [facility] INDICATION: Trauma COMPARISON: None. EXAMINATIONS: CT of the head without intravenous contrast CT of the cervical spine without intravenous contrast CT of the thoracic spine CT of the lumbar spine TECHNIQUE: CT of the head and cervical spine was performed without intravenous contrast according to standard protocol. CT images of the thoracic spine and lumbar spine were reformatted from the concurrently obtained CT scan of the chest, abdomen and pelvis with intravenous contrast. CT dose reduction technique was used, including Automated Exposure Control. FINDINGS: Head: There is no acute intracranial hemorrhage. There is no hydrocephalus, midline shift or extra-axial fluid collection. The brain parenchyma is normal in appearance. The paranasal sinuses and tympanomastoid cavities are aerated.The orbits are unremarkable. There is no calvarial fracture. Cavities and periapical lucencies are seen associated with the right maxillary molars. Cervical spine: There is no fracture or traumatic subluxation. The prevertebral soft tissues are within normal limits. There is retropharyngeal course of bilateral carotid arteries. Straightening of cervical spine is seen with slight retrolisthesis of C4 relative to C5, presumably from degenerative changes. Multilevel degenerative changes are seen. There is moderate spinal canal stenosis at C5-6. Severe stenosis of right C5-6 neural foramen is seen. There are no aggressive appearing lytic or sclerotic bone lesions. Thoracic spine: There is no fracture or traumatic subluxation of the thoracic spine. There is an acute fracture of posterior medial head of the left 12th rib. Multilevel degenerative changes are seen. There is no spinal canal or foraminal stenosis. There are no aggressive appearing lytic or sclerotic bone lesions. Lumbar spine: There are acute mildly displaced fractures of left L1-L3 transverse processes. Edema/hemorrhage is seen in the adjacent paraspinal soft tissues and muscles. Old compression deformity of T1 is seen with Schmorl's node in the right aspect of the superior endplate. The included sacrum is intact. The lumbar lordosis is maintained with levocurvature. There is no subluxation. Mild degenerative changes are seen. There is mild spinal canal stenosis at L3-4 and L4-5. Mild to moderate bilateral foraminal stenosis is seen from L3-4 to L5-S1, most pronounced on the left. There are no aggressive appearing lytic or sclerotic bone lesions. Procedure Note Juli Valadez MD - 03/06/2022 PROCEDURE: CT HEAD WO CONTRAST, CT LUMBAR SPINE WO CONTRAST, CTTHORACIC SPINE WO CONTRAST, CT CERVICAL SPINE WO CONTRAST, DATE/TIME OF EXAM: 03/05/2022 5:07 PM, LOCATION [facility] INDICATION: Trauma COMPARISON: None. EXAMINATIONS: CT of the head without intravenous contrast CT of the cervical spine without intravenous contrast CT of the thoracic spine CT of the lumbar spine TECHNIQUE: CT of the head and cervical spine was performed without intravenous contrast according to standard protocol. CT images of the thoracic spine and lumbar spine were reformatted from the concurrently obtained CT scan of the chest, abdomen and pelvis with intravenous contrast. CT dose reduction technique was used, including Automated Exposure Control. FINDINGS: Head: There is no acute intracranial hemorrhage. There is no hydrocephalus, midline shift or extra-axial fluid collection. The brain parenchyma is normal in appearance. The paranasal sinuses and tympanomastoid cavities are aerated.The orbits are unremarkable. There is no calvarial fracture. Cavities andperiapical lucencies are seen associated with the right maxillary molars. Cervical spine: There is no fracture or traumatic subluxation. The prevertebral soft tissues are within normal limits. There is retropharyngeal course of bilateral carotid arteries. Straightening of cervical spine is seen with slight retrolisthesis of C4 relative to C5, presumably from degenerative changes. Multilevel degenerative changes are seen. There is moderate spinal canal stenosisat C5-6. Severe stenosis of right C5-6 neural foramen is seen. There are no aggressive appearing lytic or sclerotic bone lesions. Thoracic spine: There is no fracture or traumatic subluxation of the thoracic spine.There is an acute fracture of posterior medial head of the left 12th rib. Multilevel degenerative changes are seen. There is no spinal canal or foraminal stenosis. There are no aggressive appearing lytic or sclerotic bone lesions. Lumbar spine: There are acute mildly displaced fractures of left L1-L3 transverse processes. Edema/hemorrhage is seen in the adjacent paraspinal softtissues and muscles. Old compression deformity of T1 is seen with Schmorl's node in the right aspect of the superior endplate. The included sacrum is intact. The lumbar lordosis is maintained with levocurvature. There is no subluxation. Mild degenerative changes are seen. There is mild spinalcanal stenosis at L3-4 and L4-5. Mild to moderate bilateral foraminal stenosisis seen from L3-4 to L5-S1, most pronounced on the left. There are no aggressive appearing lytic or sclerotic bone lesions. IMPRESSION: Head: 1.No acute intracranial abnormality. Cervical, thoracic and lumbar spine: 1.No fracture of the cervical or thoracic spine. 2.Acute mildly displaced fractures of left L1-L3 transverse processes. Acute fracture of left L3. 3.Please refer to the separately dictated report of CT scan of thechest, abdomen and pelvis for intrathoracic and intra-abdominal findings. > Interpreting Provider: Juli Valadez MD on 03/06/2022 7:31 AM Nahum Rodrigues MD CT ORDERABLES * CT HEAD WO CONTRAST - Head Trauma, CSF leak, mental status changes (03/05/2022 5:05 PM CDT) Anatomical Region Laterality Modality Head Computed Tomogra phy 03/06/2022 7:18 AM CDT Impressions 03/06/2022 7:31 AM CDT IMPRESSION: Head: 1.No acute intracranial abnormality. Cervical, thoracic and lumbar spine: 1.No fracture of the cervical or thoracic spine. 2.Acute mildly displaced fractures of left L1-L3 transverse processes. Acute fracture of left L3. 3.Please refer to the separately dictated report of CT scan of the chest, abdomen and pelvis for intrathoracic and intra-abdominal findings. > Interpreting Provider: Juli Valadez MD on 03/06/2022 7:31 AM Narrative 03/06/2022 7:31 AM CDT PROCEDURE: CT HEAD WO CONTRAST, CT LUMBAR SPINE WO CONTRAST, CT THORACIC SPINE WO CONTRAST, CT CERVICAL SPINE WO CONTRAST, DATE/TIME OF EXAM: 03/05/2022 5:07 PM, LOCATION [facility] INDICATION: Trauma COMPARISON: None. EXAMINATIONS: CT of the head without intravenous contrast CT of the cervical spine without intravenous contrast CT of the thoracic spine CT of the lumbar spine TECHNIQUE: CT of the head and cervical spine was performed without intravenous contrast according to standard protocol. CT images of the thoracic spine and lumbar spine were reformatted from the concurrently obtained CT scan of the chest, abdomen and pelvis with intravenous contrast. CT dose reduction technique was used, including Automated Exposure Control. FINDINGS: Head: There is no acute intracranial hemorrhage. There is no hydrocephalus, midline shift or extra-axial fluid collection. The brain parenchyma is normal in appearance. The paranasal sinuses and tympanomastoid cavities are aerated.The orbits are unremarkable. There is no calvarial fracture. Cavities and periapical lucencies are seen associated with the right maxillary molars. Cervical spine: There is no fracture or traumatic subluxation. The prevertebral soft tissues are within normal limits. There is retropharyngeal course of bilateral carotid arteries. Straightening of cervical spine is seen with slight retrolisthesis of C4 relative to C5, presumably from degenerative changes. Multilevel degenerative changes are seen. There is moderate spinal canal stenosis at C5-6. Severe stenosis of right C5-6 neural foramen is seen. There are no aggressive appearing lytic or sclerotic bone lesions. Thoracic spine: There is no fracture or traumatic subluxation of the thoracic spine. There is an acute fracture of posterior medial head of the left 12th rib. Multilevel degenerative changes are seen. There is no spinal canal or foraminal stenosis. There are no aggressive appearing lytic or sclerotic bone lesions. Lumbar spine: There are acute mildly displaced fractures of left L1-L3 transverse processes. Edema/hemorrhage is seen in the adjacent paraspinal soft tissues and muscles. Old compression deformity of T1 is seen with Schmorl's node in the right aspect of the superior endplate. The included sacrum is intact. The lumbar lordosis is maintained with levocurvature. There is no subluxation. Mild degenerative changes are seen. There is mild spinal canal stenosis at L3-4 and L4-5. Mild to moderate bilateral foraminal stenosis is seen from L3-4 to L5-S1, most pronounced on the left. There are no aggressive appearing lytic or sclerotic bone lesions. Procedure Note Juli Valadez MD - 03/06/2022 PROCEDURE: CT HEAD WO CONTRAST, CT LUMBAR SPINE WO CONTRAST, CTTHORACIC SPINE WO CONTRAST, CT CERVICAL SPINE WO CONTRAST, DATE/TIME OF EXAM: 03/05/2022 5:07 PM, LOCATION [facility] INDICATION: Trauma COMPARISON: None. EXAMINATIONS: CT of the head without intravenous contrast CT of the cervical spine without intravenous contrast CT of the thoracic spine CT of the lumbar spine TECHNIQUE: CT of the head and cervical spine was performed without intravenous contrast according to standard protocol. CT images of the thoracic spine and lumbar spine were reformatted from the concurrently obtained CT scan of the chest, abdomen and pelvis with intravenous contrast. CT dose reduction technique was used, including Automated Exposure Control. FINDINGS: Head: There is no acute intracranial hemorrhage. There is no hydrocephalus, midline shift or extra-axial fluid collection. The brain parenchyma is normal in appearance. The paranasal sinuses and tympanomastoid cavities are aerated.The orbits are unremarkable. There is no calvarial fracture. Cavities andperiapical lucencies are seen associated with the right maxillary molars. Cervical spine: There is no fracture or traumatic subluxation. The prevertebral soft tissues are within normal limits. There is retropharyngeal course of bilateral carotid arteries. Straightening of cervical spine is seen with slight retrolisthesis of C4 relative to C5, presumably from degenerative changes. Multilevel degenerative changes are seen. There is moderate spinal canal stenosisat C5-6. Severe stenosis of right C5-6 neural foramen is seen. There are no aggressive appearing lytic or sclerotic bone lesions. Thoracic spine: There is no fracture or traumatic subluxation of the thoracic spine.There is an acute fracture of posterior medial head of the left 12th rib. Multilevel degenerative changes are seen. There is no spinal canal or foraminal stenosis. There are no aggressive appearing lytic or sclerotic bone lesions. Lumbar spine: There are acute mildly displaced fractures of left L1-L3 transverse processes. Edema/hemorrhage is seen in the adjacent paraspinal softtissues and muscles. Old compression deformity of T1 is seen with Schmorl's node in the right aspect of the superior endplate. The included sacrum is intact. The lumbar lordosis is maintained with levocurvature. There is no subluxation. Mild degenerative changes are seen. There is mild spinalcanal stenosis at L3-4 and L4-5. Mild to moderate bilateral foraminal stenosisis seen from L3-4 to L5-S1, most pronounced on the left. There are no aggressive appearing lytic or sclerotic bone lesions. IMPRESSION: Head: 1.No acute intracranial abnormality. Cervical, thoracic and lumbar spine: 1.No fracture of the cervical or thoracic spine. 2.Acute mildly displaced fractures of left L1-L3 transverse processes. Acute fracture of left L3. 3.Please refer to the separately dictated report of CT scan of thechest, abdomen and pelvis for intrathoracic and intra-abdominal findings. > Interpreting Provider: Juli Valadez MD on 03/06/2022 7:31 AM Nahum Rodrigues MD CT ORDERABLES * PTT [facility] (03/05/2022 4:47 PM CDT) [facility] APTT 30.1 23.0 - 38.4 Seconds 03/05/2022 5:14 PM CDT [facility] Comment:Suggested therapeuti c range for full dose I.V. unfractionated heparin therapy for venous thromboembolism is 71 to 109 seconds. Blood BLOOD SPECIMEN / Unknown Venipuncture / Unknown 03/05/2022 4:47 PM CDT 03/05/2022 4:52 PM CDT Nahum Rodrigues MD LAB - COAGULATION ORDERABLES [facility] [address] [address], [facility] [phone] * TYPE + SCREEN PANEL (03/05/2022 4:47 PM CDT) [facility] Antibody Screen NEG 03/05/2022 5:30 PM CDT [facility] ABO Rh AB NEG 03/05/2022 5:30 PM CDT [facility] Blood Bank BLOOD SPECIMEN / Unknown Venipuncture / Unknown 03/05/2022 4:47 PM CDT 03/05/2022 4:53 PM CDT Nahum Rodrigues MD LAB - BLOOD BANK O RDERABLES [facility] [address] [place] [address], [facility] [phone] * ALCOHOL ETHYL BLOOD (03/05/2022 4:47 PM CDT) Ethanol (mg/dL) <10 <10 mg/dL 5:18 PM CDT [facility] Ethanol Calculated (g/dL) <0.010 <=0.010 g/dL 03/05/2022 5:18 PM CDT [facility] Blood BLOOD SPECIMEN / Unknown Venipuncture / Unknown 03/05/2022 4:47 PM CDT 03/05/2022 4:53 PM CDT Narrative [facility] - 03/05/2022 5:18 PM CDT Ethanol Interp <10: None Detected. Depression of W[employer]ING [employer]ACH[employer]PERATOR: >100 mg/dl Potentially Critical: >250 mg/dl Potentially Fatal >400 mg/dl Ethanol in the patient's blood will contribute to the osmolar gap. Ethanol's contribution to the osmolar gap can be estimated by dividing the concentration of ethanol in mg/dL by 4.6. This test is for clinical use only and does not equal a ROXANNE for legal purposes. Nahum Rodrigues MD LAB - CHEMISTRY OR DERABLES [facility] [address] [place] [address], [facility] [phone] * PATHOLOGY TISSUE (02/11/2019 3:50 PM CDT) Pathologist [facility] Case Report Surgical Pathology Report Case: [id number] Authorizing Provider: Haley Simeon MD Collected: 02/11/2019 03:50 PM Ordering Location: [facility] Received: 02/15/2019 03:50 PM Pathologist: Anyi Sandoval MD Specimen: Slide Consultation, OSC: [id number] 02/17/2019 12:27 PM CDT [facility] Final Diagnosis Prostate, LLB, needle core biopsy ([id number], A; 02/11/2019): - Benign prostatic tissue Prostate, LLM, needle core biopsy ([id number], B; 02/11/2019): - Benign prostatic tissue Prostate, [...] - Benign prostatic tissue 02/17/2019 12:27 PM [facility] Microscopic Description and Comment All twelve biopsies contain benign prostatic tissue. No tumor is seen. 02/17/2019 12:27 PM [facility] Clinical History 48-year-old man, PSA 5.7, prostate volume 37.8, T1c 02/17/2019 12:27 PM [facility] Materials Received Received are 12 H and E stained slides (A1 - L1) from [facility], [address] [place] [address], [address], [place] [address], labeled with the patient s name Derick Garrison and , along with the corresponding pathology gross description also labeled with the patient's full name Derick Garrison . All material will be returned. 02/17/2019 12:27 PM [facility] Disclaimer The performance characteristics of all immunohistochemical and indirect immunofluorescence stains (if any) cited in this report were determined by the Histopathology Laboratory of [facility]. Some of these tests were developed [...] attending (teaching) pathologist. 02/17/2019 12:27 PM CDT [facility] Embedded Images 02/17/2019 12:27 PM CDT [facility] Pathology/Cytolo gy SURGICAL PATHOLOGY CONSULTATION AND REPORT ON REFERRED SLIDES PREPARED ELSEWHERE / Unknown 02/11/2019 3:50 PM CDT 02/15/2019 3:50 PM CDT Haley Simeon MD LAB - PATHOLOGY/CYTO LOGY ORDERABLES Performing Organization Address City/State/[facility] de Phone Number [facility] [address] [phone] Care Teams Sample Book Maker Relationship Specialty Start Date End Date Margi Minor APRN-COMMAND AND CONTROL [address] [place] [address] PCP - General Nurse Practitioner Family 03/05/22
--- OUTSIDE RECORDS SUMMARY | 2024-07-27 15:25 | XMS_ITS | Clinical Summary ---
Author Organization [facility] [email or web address] Address [address] [place] [address] Care Team Providers Care Team Assistant Name Role Phone Margi Minor Vicenta HAYWOOD-TOPOLOGY PROFESSOR Primary Care Provider Source Comments [facility] [email or web address],non-owned Affiliates and Associated Physician Practices is amultiple site organization consisting of ambulatory clinics and hospital sitesin [place], [place], [place] and [place]. This disclosure is being madepursuant to the Care Everywhere program and may not contain all information available regarding this patient. Last updated [email or web address] Allergies No known active allergies Medications * [...] 2 times daily 1 Active HYDROcodone-acetaminophe n (Hughson) 5-325 MG tablet Take 2 (two) tablets [...] (06/02/2022): Added automatically from request for surgery [id number] Last Assessment & Plan: Status post left [...] Mass Index 42.57 03/05/2022 4:40 PM CDT Plan of Treatment Health Maintenance Due Date Last Done Comments COLOGUARD (AGES 45-75) - COL ON CA SCREENING 1969 COLON MONITORING 1969 COLONOSCOPY - COLON CA SCREENING 1969 CT COLONOGRAPHY - COLON CA SCREENING 1969 Colorectal Cancer Screening 1969 FIT - COLON CA SCREENING 1969 FLEX SIG - COLON CA SCREENING 1969 LIPID TESTING 1969 HIV SCREENING 1984 HEPATITIS C SCREENING 03/15/1987 HEPATITIS B VACCINE (1 of 3 - 19+ 3-dose series) 1988 PNEUMOCOCCAL VACCINE 50+ (1 of 1 - PCV) 2019 ZOSTER VACCINE (1 of 2) 2019 COVID-19 VACCINE (3 - 2023-2 5 season) 2024 10/08/2020, 09/10/2020 INFLUENZA VACCINE (#1) 2024 DEPRESSION SCREENING 06/22/2024 SCREENING FOR DIABETES 03/06/2025 2, 03/05/2022 DTAP/TDAP/TD VACCINES (2 - T d or Tdap) 03/05/2032 03/05/2022 HIB VACCINE Aged Out No longer eligi ble based on patient's age to complete this topic HPV VACCINE Aged Out No longer eligi ble based on patient's age to complete this topic MENINGOCOCCAL (Group B) VACCINE Aged Out No longer eligible b ased on patient's age to complete this topic MENINGOCOCCAL VACCINE Aged Out No edel mauro eligible based on patient's age to complete this topic PNEUMOCOCCAL VACCINE Aged Out No long er eligible based on patient's age to complete this topic Procedures Procedure Name Priority Date/Time Associated Diagnosis Comments BASIC METABOLIC PANEL (CALCIUM TOTAL) AM Draw 03/06/2022 2:10 AM CDT from Last 3 Months or Most Recently Relevant to Health Maintenance Results * (ABNORMAL) BASIC METABOLIC PANEL (CALCIUM TOTAL) (03/06/2022 2:10 AM CDT) BUN 13 7 - 26 mg/dL 03/06/2022 3:11 AM [facility] Creatinine 1.02 0.71 - 1.16 mg/dL 03/06/2022 3:11 AM [facility] Sodium 133(L) 136 - 145 mmol/L 03/06/2022 3:11 AM [facility] Potassium 4.0 3.5 - 4.5 mmol/L 03/06/2022 3:11 AM [facility] Chloride 100 98 - 107 mmol/L 03/06/2022 3:11 AM [facility] CO2 23 22 - 29 mmol/L 03/06/2022 3:11 AM [facility] Glucose 119(H) 70 - 115 mg/dL 03/06/2022 3:11 AM [facility] Calcium 8.6 8.4 - 10.2 mg/dL 03/06/2022 3:11 AM [facility] Anion Gap 14 8 - 18 03/06/2022 3:11 AM [facility] BUN/Creatinine Ratio 13 7 - 23 03/06/2022 3:11 AM [facility] Osmolality Calculated 277 270 - 300 mOsm/kg 03/06/2022 3:11 AM [facility] eGFR by CKD-EPI 88(L) >=90 mL/min/1.7 3 m2 03/06/2022 3:11 AM [facility] Blood BLOOD SPECIMEN / Unknown Lab Venipuncture / Unknown 03/06/2022 2:10 AM CDT 03/06/2022 2:42 AM CDT Nahum Rodrigues MD LAB - CHEMISTRY OR DERABLES [facility] [address] [place] [address], [facility] [phone] from Last 3 Months or Most Recently Relevant to Health Maintenance Advance Directives * Full Code (Latest Code Status on File) Date Activated Date Inactivated Comments 03/05/2022 5:47 PM 03/10/2022 3:43 PM Care Teams Team Assistant Relationship Specialty Start Date End Date Margi Minor, ANTI TANK MISSILEMAN-TOPOLOGY PROFESSOR [address] [place] [phone] PCP - General Nurse Practitioner Family 03/05/22
--- OUTSIDE RECORDS SUMMARY | 2024-07-27 15:25 | XMS_ITS | Clinical Summary ---
Author Organization [facility] Address [address] [place] [address] Care Team Providers Care Roll Edge Machine Operator Name Role Phone Unavailable Primary Care Provider Unavailabl e Social History Tobacco Use Types Packs/Day Years Used Date Smoking Tobacco: Never Assessed Sex and Gender Information Value Date Recorded Sex Assigned at Not on file Legal Sex Male 7:50 AM CDT Gender Identity Not on file Sexual Orientation Not on file Plan of Treatment Health Maintenance Due Date Last Done Comments Colorectal Cancer Screening Colonoscopy (10 Years) 1969 Annual Physical 1972 Hepatitis C 1987 DTaP, Tdap and Td Vaccines ( 1 - Tdap) 1988 Hepatitis B Vaccines (1 of 3 - 19+ 3-dose series) 1988 Zoster Vaccines (1 of 2) 2019 COVID-19 Vaccine (2023-2 5 season) 2024 Influenza Adult (#1) 2024 Meningococcal B Vaccine Aged Out No l onger eligible based on patient's age to complete this topic Meningococcal Vaccine Aged Out No edel mauro eligible based on patient's age to complete this topic Pneumococcal Vaccine: Pediat rics (0 to 5 Years) and At-Risk Patients (6 to 64 Years) Aged Out No longer eligible b ased on patient's age to complete this topic RSV Immunizations Under 20 Months Aged Out No longer eligible based on patient's age to complete this topic
== END 2024-07-27 14:36 | disposition home or self-care (01) ==
LOC: ANHIMG 14:41
DX: M25.551 Pain in right hip (principal)
CPT/HCPCS: 73502

== ENCOUNTER 2025-02-24 09:15 | Outpatient (CLI) | payer OTHER, SELFPAY ==
--- NOTE | ~2025-02-24 | US_ITS ---
EXAMINATION: US thyroid DATE: 02/24/2025 09:28 INDICATION: Hyperthyroidism TECHNIQUE: Multiple ultrasound images of the thyroid were obtained. COMPARISON: None. FINDINGS: The right thyroid lobe measures 6.3 x 3.1 x 1.8 cm. The left thyroid lobe measures 5.9 x 2.3 x 1.7 cm. Thyroid isthmus measures 2 mm in thickness. 1.4 cm solid very hypoechoic wider than tall nodule with smooth margins and without echogenic foci at the superior left thyroid lobe (TI-RADS 4, moderately suspicious , FNA if >=1.5 cm, annual followup is >=1 cm). There is normal echotexture, echogenicity and vascular flow throughout the remainder of the thyroid gland. IMPRESSION: 1. 1.4 cm TI RADS 4 left thyroid nodule for which annual ultrasound follow-up would be recommended. Reviewed, dictated and finalized at location A.
== END 2025-02-24 09:16 | disposition home or self-care (01) ==
DX: E05.90 Thyrotoxicosis, unspecified without thyrotoxic crisis or storm (principal); E04.1 Nontoxic single thyroid nodule
CPT/HCPCS: 76536